=== PATIENT | female | born 1950 | race Caucasian/White ===

== ENCOUNTER 2022-12-08 09:56 | Inpatient (IN) ==
[2022-12-07 18:23] LABS: Basophils # (Auto) 0.04 K/mcL (0.00-0.30); Basophils % (Auto) 1.1 % (0.0-2.0); Eosinophils # (Auto) 0.11 K/mcL (0.00-0.70); Eosinophils % (Auto) 2.9 % (0.0-7.0); Hematocrit 33.6 % (34.1-44.9); Hemoglobin 11.3 g/dL (11.2-15.7); Lymphocytes # (Auto) 0.95 K/mcL (1.50-4.80); Lymphocytes % (Auto) 25.4 % (15.5-49.0); Mean Cell Volume 94.4 fL (80.0-100.0); Mean Corpuscular HGB Conc 33.6 g/dL (31.0-36.0); Mean Platelet Volume 9.1 fL (8.8-12.5); Monocytes # (Auto) 0.36 K/mcL (0.10-0.90); Monocytes % (Auto) 9.6 % (1.0-12.0); Neutrophils % (Auto) 60.7 % (38.0-78.0); Platelet Count 353 K/mcL (140-440); RBC 3.56 M/mcL (3.59-5.38); Red Cell Distribution Width 15.7 % (11.5-14.5); WBC 3.7 K/mcL (4.5-11.0)
[2022-12-07 18:32] LABS: Blood Urea Nitrogen 10 mg/dL (8-23); Carbon Dioxide 24 mmol/L (22-30); Chloride 101 mmol/L (96-108); Glomerular Filtration Rate 96; Glucose 88 mg/dL (70-105)
[~2022-12-08 09:56] MED LIST: IPRATROPIUM/ALBUTEROL 3 ML AMPUL.NEB NEB PRN; SCOPOLAMINE 1 PATCH PATCH TOPICAL PRN
[2022-12-08] MEDS ORDERED: ceFAZolin 2 GM in DEXTROSE 5% IN WATER 50 ML IV ONE (15:00)
[2022-12-08] MEDS ORDERED: VANCOMYCIN 1,000 MG in 0.9 % SODIUM CHLORIDE 250 ML IV SCH ×2 (15:00→21:00)
[2022-12-08] MEDS ORDERED: MAGNESIUM SULFATE 2 GM/50 ML BAG IV ONE (15:15)
[2022-12-08] MEDS ORDERED: LIDOCAINE HCL/PF 100 MG/5 ML SYRINGE IV ONE (15:15)
[2022-12-08] MEDS ORDERED: DEXAMETHASONE 10 MG/ML VIAL ONE (15:15)
[2022-12-08] MEDS ORDERED: ONDANSETRON 4 MG/2 ML VIAL ONE (15:15)
[2022-12-08] MEDS ORDERED: PROPOFOL 200 MG/20 ML VIAL IV ONE (15:15)
[2022-12-08] MEDS ORDERED: MIDAZOLAM 2 MG/2 ML VIAL ONE (15:15)
[2022-12-08] MEDS ORDERED: TRANEXAMIC ACID 1,000 MG/10 ML VIAL ONE (15:15)
[2022-12-08] MEDS ORDERED: fentaNYL 100 MCG/2 ML VIAL IV ONE (15:15)
[2022-12-08] MEDS ORDERED: TOBRAMYCIN SULFATE 1.2 GM VIAL TOPICAL ONE (15:55)
[2022-12-08] MEDS ORDERED: VANCOMYCIN 1 GM VIAL TOPICAL SCH ×2 (16:00)
[2022-12-08] MEDS ORDERED: fentaNYL 100 MCG/2 ML VIAL IV PRN (17:04)
[2022-12-08] MEDS ORDERED: PROMETHAZINE 25 MG/ML VIAL IV PRN (17:04)
[2022-12-08] MEDS ORDERED: HYDROmorphone 0.5 MG/0.5 ML SYRINGE IV PRN (17:04)
[2022-12-08] MEDS ORDERED: ONDANSETRON 4 MG/2 ML VIAL IV PRN ×2 (17:04→17:14)
[2022-12-08] MEDS ORDERED: METHOCARBAMOL 1,000 MG/10 ML VIAL IV PRN (17:04)
[2022-12-08] MEDS ORDERED: ACETAMINOPHEN 1,000 MG/100 ML BAG IV ONE (17:04)
[2022-12-08] MEDS ORDERED: LACTATED RINGERS 250 ML IV PRN (17:04)
[2022-12-08] MEDS ORDERED: MEPERIDINE 25 MG/ML VIAL IV PRN (17:04)
[2022-12-08] MEDS ORDERED: NALOXONE HCL 0.4 MG/ML VIAL IV PRN (17:04)
[2022-12-08] MEDS ORDERED: IPRATROPIUM/ALBUTEROL 3 ML AMPUL.NEB NEB PRN (17:04)
[2022-12-08] MEDS ORDERED: diphenhydrAMINE 50 MG/ML VIAL IV PRN (17:04)
[2022-12-08] MEDS ORDERED: BISACODYL 10 MG SUPP.RECT PR PRN (17:14)
[2022-12-08] MEDS ORDERED: POLYETHYLENE GLYCOL 3350 17 GM PACKET PO PRN (17:14)
[2022-12-08] MEDS ORDERED: BENZOCAINE/MENTHOL 1 LOZENGE PO PRN (17:14)
[2022-12-08] MEDS ORDERED: TRANEXAMIC ACID 1,000 MG/10 ML VIAL IV ONE (17:14)
[2022-12-08] MEDS ORDERED: MAGNESIUM HYDROXIDE 30 ML ORAL.SUSP PO PRN (17:14)
[2022-12-08] MEDS ORDERED: FLEETS ADULT ENEMA PR PRN (17:14)
[2022-12-08] MEDS ORDERED: KETOROLAC 30 MG/ML VIAL IV PRN (17:14)
[2022-12-08] MEDS ORDERED: ACETAMINOPHEN 500 MG TABLET PO PRN (17:14)
[2022-12-08] MEDS ORDERED: LACTATED RINGERS 1,000 ML IV SCH (17:15)
[2022-12-08] MEDS ORDERED: NARATRIPTAN 2.5 MG PO PRN (17:30)
[2022-12-08] MEDS ORDERED: ROTIGOTINE TOPICAL PRN (17:44)
[2022-12-08] MEDS: LACTATED RINGERS 1,000 ML IV SCH (18:47)
[2022-12-08] MEDS ORDERED: DOCUSATE SODIUM 100 MG CAPSULE PO SCH (21:00)
[2022-12-08] MEDS ORDERED: ASPIRIN 81 MG TAB.CHEW CHEWED SCH (21:00)
[2022-12-08] MEDS ORDERED: MONTELUKAST 10 MG TABLET PO SCH ×2 (21:00)
[2022-12-08] MEDS ORDERED: SENNOSIDES 1 TABLET PO SCH ×2 (21:00)
[2022-12-08] MEDS ORDERED: GABAPENTIN 300 MG CAPSULE PO SCH (21:00)
[2022-12-08] MEDS: DOCUSATE SODIUM 100 MG CAPSULE PO SCH (21:02)
[2022-12-08] MEDS: GABAPENTIN 300 MG CAPSULE PO SCH (21:03)
[2022-12-08] MEDS: ASPIRIN 81 MG TAB.CHEW CHEWED SCH (21:03)
[2022-12-08] MEDS: AZELASTINE NAS SCH (21:05)
[2022-12-08] MEDS: Cyclosporine [Restasis] 0.05 % Dropperette OU SCH (21:06)
[2022-12-08] MEDS: 0.9 % SODIUM CHLORIDE 10 ML SYRINGE IV SCH (21:06)
[2022-12-08] MEDS ORDERED: 0.9 % SODIUM CHLORIDE 10 ML SYRINGE IV PRN (23:04)
[2022-12-09] MEDS: 0.9 % SODIUM CHLORIDE 10 ML SYRINGE IV SCH ×3 (00:25→09:12)
[2022-12-09] MEDS: LACTATED RINGERS 1,000 ML IV SCH (06:33)
[2022-12-09] MEDS ORDERED: ACETAMINOPHEN 500 MG TABLET PO PRN (07:02)
[2022-12-09] MEDS ORDERED: OMEPRAZOLE 20 MG CAPSULE PO SCH ×2 (07:30)
[2022-12-09] MEDS: ASPIRIN 81 MG TAB.CHEW CHEWED SCH (08:26)
[2022-12-09] MEDS: GABAPENTIN 300 MG CAPSULE PO SCH (08:26)
[2022-12-09] MEDS: AZELASTINE NAS SCH (08:27)
[2022-12-09] MEDS: DOCUSATE SODIUM 100 MG CAPSULE PO SCH (08:27)
[2022-12-09] MEDS: oxyCODONE IR 5 MG TABLET PO PRN ×2 (08:27→13:18)
[2022-12-09] MEDS: Cyclosporine [Restasis] 0.05 % Dropperette OU SCH (08:28)
[2022-12-09] MEDS ORDERED: DAPTOmycin 500 MG VIAL IV SCH (09:00)
[2022-12-09] MEDS ORDERED: amLODIPine 5 MG TABLET PO SCH ×3 (09:00)
[2022-12-09] MEDS ORDERED: POTASSIUM CITRATE 10 MEQ TAB.XL.24H PO SCH ×3 (09:00)
[2022-12-09] MEDS ORDERED: SERTRALINE 50 MG TABLET PO SCH ×3 (09:00)
== END 2022-12-09 13:00 | disposition home or self-care (01) | DRG 468 ==
LOC: MEDSUR 09:56
PROVIDERS: ADMIT Orthopaedic Surgery; ATTEND Orthopaedic Surgery